=== PATIENT | male | born 1975 | race Caucasian/White ===

== ENCOUNTER 2017-12-16 17:19 | Emergency (ER) | payer BC ==
[2017-12-16] MEDS: ONDANSETRON (ODT) 4 MG TAB ODT (20:11)
[2017-12-16] MEDS: HYDROCODONE/APAP (5/325) TAB PO (20:11)
== END 2017-12-16 21:10 | disposition home or self-care (01) ==
LOC: FTE 17:19
DX: S01.01XA Laceration without foreign body of scalp, initial encounter (principal); I10 Essential (primary) hypertension; F17.210 Nicotine dependence, cigarettes, uncomplicated; Y08.89XA Assault by other specified means, initial encounter
CPT/HCPCS: 12002; 70450; 99284-25

== ENCOUNTER 2017-12-24 08:35 | Emergency (ER) | payer BC | END 2017-12-24 10:17 | disposition home or self-care (01) | LOC: FTE 08:35 | DX: Z48.02 Encounter for removal of sutures (principal); I10 Essential (primary) hypertension; Z87.891 Personal history of nicotine dependence | CPT/HCPCS: 99281 ==

== ENCOUNTER 2019-03-10 08:03 | Emergency (ER) | payer BC ==
[2019-03-10 08:55] LABS: ADD MAN DIFF? NO
[2019-03-10 08:56] LABS: BASOPHIL # 0.1 10^3/ul (0.0-0.1); BASOPHILS % 0.6 % (0.0-2.0); EOSINOPHILS # 0.1 10^3/ul (0.0-0.5); EOSINOPHILS % 0.9 % (0.0-7.0); HEMATOCRIT 39.7 % (42.0-52.0); HEMOGLOBIN 14.1 g/dl (14.0-18.0); LYMPHOCYTES # 1.7 10^3/ul (0.8-2.9); LYMPHOCYTES % 18.4 % (15.0-51.0); MEAN CORPUSCULAR HEMOGLOBIN 29.3 pg (29.0-33.0); MEAN CORPUSCULAR HGB CONC 35.5 g/dl (32.0-37.0); MEAN CORPUSCULAR VOLUME 82.4 fl (82.0-101.0); MEAN PLATELET VOLUME 11.1 fl (7.4-10.4); MONOCYTE # 0.9 10^3/ul (0.3-0.9); MONOCYTES % 10.2 % (0.0-11.0); NEUTROPHIL # 6.2 10^3/ul (1.6-7.5); NEUTROPHILS % 69.2 % (39.0-77.0); PLATELET COUNT 219 10^3/UL (140-415); RED BLOOD COUNT 4.82 10^6/ul (4.70-6.10); RED CELL DISTRIBUTION WIDTH 12.7 % (11.5-14.5)
[2019-03-10] MEDS: METHYLPREDNISOLONE 125 MG INJ IV (09:00)
[2019-03-10] MEDS: DIPHENHYDRAMINE 50 MG INJ IV (09:00)
[2019-03-10] MEDS: SOD CHLORIDE 0.9% 500 ML IV (09:01)
== END 2019-03-10 11:00 | disposition home or self-care (01) ==
LOC: FTE 08:03
DX: R22.0 Localized swelling, mass and lump, head (principal); I10 Essential (primary) hypertension; Z87.891 Personal history of nicotine dependence
CPT/HCPCS: 85025; 96361; 96374; 96375; 99284-25